=== PATIENT | male | born 1985 | race African-American/Black ===

== ENCOUNTER 2019-08-01 18:43 | Emergency (ER) | payer OTHER ==
[~2019-08-01] VITALS: Ht 182.9 cm; Wt 90.7 kg
[2019-08-01 19:04] VITALS: BP 134/74
[2019-08-01] MEDS ORDERED: BACLOFEN 10 MG TAB PO ONE (22:45)
[2019-08-01] MEDS ORDERED: HYDROcodone-ACET 10/325MG TAB PO ONE (22:45)
== END 2019-08-02 00:31 | disposition home or self-care (01) ==
LOC: EDBD 18:43 → ER 18:43
DX: S33.5XXA Sprain of ligaments of lumbar spine, initial encounter (principal); M79.644 Pain in right finger(s); W01.0XXA Fall on same level from slipping, tripping and stumbling without subsequent striking against object, initial encounter; Y93.01 Activity, walking, marching and hiking; Y92.59 Other trade areas as the place of occurrence of the external cause; Y99.8 Other external cause status
CPT/HCPCS: 72100; 73130